=== PATIENT | male | born 1990 | race Caucasian/White ===

== ENCOUNTER 2016-11-12 14:28 | Emergency (ER) | payer OTHER, MEDICAID ==
[~2016-11-12] VITALS: Ht 190.5 cm; Wt 68.0 kg
[~2016-11-12 14:28] MED LIST: TRAM50 PO; ZOFR4TAB3 SL
[2016-11-12 14:37] VITALS: BP 116/74; PULSE 85; RESP 16; TEMP 98.3; O2SAT 99
[2016-11-12] MEDS ORDERED: SODIUM CHLOR 0.9% 1000 ML INJ 1,000 ML IV SCH (15:59)
[2016-11-12] MEDS ORDERED: MORPHINE SULFATE 4 MG/ML INJ IV PUSH ONE (16:00)
[2016-11-12] MEDS ORDERED: ONDANSETRON HCL 4 MG/2 ML VIAL IVP ONE (16:00)
[2016-11-12] MEDS ORDERED: SODIUM CHLORIDE 0.9% FLUSH 5 ML FLUSH IVF PRN (16:00)
--- NOTE | 2016-11-12 16:03 | PD ---
HPI Chief Complaint: Abdominal Pain Time Seen by Provider: 15:56 Travel History International Travel<30 days: No Contact w/Intl Traveler<30days: No Traveled to known affect area: No History of Present Illness HPI 26-year-old male here for evaluation of abdominal pain, nausea, vomiting, and diarrhea. The patient reports having these episodes intermittently for the past 2 weeks. He has not vomited in 2 days, however has had several episodes of loose bowel movements. Abdominal pain is diffuse. Patient states he feels as though he is . Abdominal pain also described as cramping/bloating, moderate, worse with movement and palpation. Emesis and bowel movements are nonbloody. No history of abdominal surgeries. He states that 2 out of 3 of his children at home have had vomiting and diarrhea over the past couple of weeks. He has had subjective fevers and chills. [facility] Past Medical History Medical History: Denies Significant Hx Influenza Vaccination: No Past Surgical History Surgical History: No Previous Surgery Social History Alcohol Use: Yes (SOCIAL) Tobacco Use: Yes Substance Use: Yes ([employer]) Allergies-Medications (Allergen,Severity, Reaction): Coded Allergies: No Known Allergies (Verified , 11/12/16) Reported Meds & Prescriptions Reported Meds & Active Scripts Active No Active Prescriptions or Reported Medications Review of Systems Except as stated in HPI: all other systems reviewed are Neg Physical Exam Narrative GENERAL: Well-developed, well-nourished, comfortable, no acute distress. SKIN: Warm and dry. HEAD: Atraumatic. Normocephalic. EYES: Pupils equal and round. No scleral icterus. No injection or drainage. ENT: Mucous membranes pink and dry. NECK: Trachea midline. No JVD. CARDIOVASCULAR: Regular rate and rhythm. RESPIRATORY: No accessory muscle use. Clear to auscultation. Breath sounds equal bilaterally. GASTROINTESTINAL: Abdomen soft, nondistended. Moderate periumbilical tenderness with mild diffuse abdominal tenderness without rebound or guarding. Normal bowel sounds. MUSCULOSKELETAL: No obvious deformities. No clubbing. No cyanosis. No edema. NEUROLOGICAL: Awake and alert. No obvious cranial nerve deficits. Motor grossly within normal limits. Normal speech. PSYCHIATRIC: Appropriate mood and affect; insight and judgment normal. Data Data Last Documented VS Vital Signs Date Time Temp Pulse Resp B/P Pulse Ox O2 Delivery O2 Flow Rate FiO2 11/12/16 16:21 98 Room Air 2/16/17 14:37 98.3 85 16 116/74 Orders Complete Blood Count With Diff (11/12/16 15:59) Comprehensive Metabolic Panel (11/12/16 15:59) Lipase (11/12/16 15:59) Prothrombin Time / Inr (Pt) (11/12/16 15:59) Act Partial Throm Time (Ptt) (11/12/16 15:59) Urinalysis - C+S If Indicated (11/12/16 15:59) Ct Abd/Pel W Iv Contrast(Rout) (11/12/16 15:59) Iv Access Insert/Monitor (11/12/16 15:59) Ecg Monitoring (11/12/16 15:59) Oximetry (11/12/16 15:59) Morphine Inj (Morphine Inj) (11/12/16 16:00) Ondansetron Inj (Zofran Inj) (11/12/16 16:00) Sodium Chlor 0.9% 1000 Ml Inj (Ns 1000 M (11/12/16 15:59) Sodium Chloride 0.9% Flush (Ns Flush) (11/12/16 16:00) Diatrizoate Liq ( Gastroview Liq) (11/12/16 16:12) Iohexol 350 Inj (Omnipaque 350 Inj) (11/12/16 17:52) Labs Laboratory Tests Test 11/12/16 16:12 White Blood Count 9.7 TH/MM3 Red Blood Count 4.70 MIL/MM3 Hemoglobin 15.3 GM/DL Hematocrit 45.2 % Mean Corpuscular Volume 96.2 FL Mean Corpuscular Hemoglobin 32.5 PG Mean Corpuscular Hemoglobin 33.8 % Concent Red Cell Distribution Width 12.7 % Platelet Count 227 TH/MM3 Mean Platelet Volume 8.2 FL Neutrophils (%) (Auto) 85.2 % Lymphocytes (%) (Auto) 6.0 % Monocytes (%) (Auto) 6.5 % Eosinophils (%) (Auto) 0.8 % Basophils (%) (Auto) 1.5 % Neutrophils # (Auto) 8.3 TH/MM3 Lymphocytes # (Auto) 0.6 TH/MM3 Monocytes # (Auto) 0.6 TH/MM3 Eosinophils # (Auto) 0.1 TH/MM3 Basophils # (Auto) 0.1 TH/MM3 CBC Comment DIFF FINAL Differential Comment Prothrombin Time 14.3 SEC Prothromb Time International 1.3 RATIO Ratio Activated Partial 32.2 SEC Thromboplast Time Urine Collection Type CLEAN CATCH Urine Color YELLOW Urine Turbidity CLEAR Urine pH 6.0 Urine Specific [place] 1.032 Urine Protein TRACE mg/dL Urine Glucose (UA) NEG mg/dL Urine Ketones NEG mg/dL Urine Occult Blood NEG Urine Nitrite NEG Urine Bilirubin NEG Urine Leukocyte Esterase NEG Urine RBC 0-3 /hpf Urine Squamous Epithelial 0-5 /hpf Cells Urine Mucus FEW /lpf Microscopic Urinalysis Comment CULT NOT INDICATED Urine Collection Time 16:12 Sodium Level 140 MEQ/L Potassium Level 3.9 MEQ/L Chloride Level 105 MEQ/L Carbon Dioxide Level 28.1 MEQ/L Anion Gap 7 MEQ/L Blood Urea Nitrogen 16 MG/DL Creatinine 0.96 MG/DL Estimat Glomerular Filtration 95 ML/MIN Rate Random Glucose 75 MG/DL Calcium Level 8.4 MG/DL Total Bilirubin 0.6 MG/DL Aspartate Amino Transf 25 U/L (AST/SGOT) Alanine Aminotransferase 22 U/L (ALT/SGPT) Alkaline Phosphatase 58 U/L Total Protein 7.0 GM/DL Albumin 4.0 GM/DL Lipase 74 U/L [facility] Medical Decision Making Medical Screen Exam Complete: Yes Emergency Medical Condition: Yes Differential Diagnosis Gastroenteritis, appendicitis, colitis, hepatobiliary disease, enteritis, pancreatitis, gastritis, UTI, cystitis, dehydration Narrative Course Vital signs show heart rate 85, blood pressure 116/74, pulse ox 99% on room air , oral temp of 98.3F. CBC is remarkable for 85% neutrophils, otherwise unremarkable. CMP is unremarkable. Lipase is 74. UA is not suggestive of UTI. CT abdomen pelvis: CONCLUSION: 1. Persistent pelvocaliectasis of the left collecting system with diffuse and significant dilation of the left ureter down to the UVJ. 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 2. Otherwise, no acute intraperitoneal or pelvic process to explain current clinical symptoms. The patient was given a liter of normal saline IV, antiemetics, and pain medication. Upon reassessment he is resting comfortably stating that he feels a lot better. He was made aware of all findings. Chart review shows that the patient had similar CT findings as above in February 2016. Urology was contacted by the emergency physician at that time, and he recommended outpatient follow- up. Patient was made aware of all findings and was provided a copy of his CT report. He states he has not followed up with a urologist yet. I believe he is suffering from a viral illness/gastroenteritis and believe he is stable for discharge home with outpatient follow-up. He was informed on when to return to the emergency department. He verbalizes understanding and agreement with plan. Diagnosis Primary Impression: Abdominal pain Qualified Code: R10.9 - Abdominal pain, unspecified location Additional Impressions: Diarrhea Qualified Code: R19.7 - Diarrhea, unspecified type Hydroureter Referrals: Eddie Spencer MD 1 week Urologist Primary Care Physician 3 days Additional Instructions: Follow-up with a primary care physician this week. Stay hydrated with plenty of fluids. Follow-up with urologist Dr. Spencer regarding your CT finding of an enlarged ureter. Return to the emergency department for worsening symptoms or any other concerns. Scripts Ondansetron Odt (Zofran Odt)4 Mg Tab4 Mg SL Q8HR PRN (Nausea/Vomiting) #15 TAB Ref 0 Prov:Philippe Reardon MD 11/12/16 Disposition: 01 DISCHARGE HOME Condition: Stable Philippe Reardon MD Nov 12, 2016 16:03
[2016-11-12] MEDS ORDERED: DIATRIZOATE MEGLUM/DIATRIZOATE SOD 9 ML CUP ONE (16:12)
[2016-11-12 16:21] VITALS: O2SAT 98
[2016-11-12 16:23] LABS: AUTOMATED NEUTROPHIL # 8.3 TH/MM3 (1.8-7.7); BASOPHIL # 0.1 TH/MM3 (0-0.2); BASOPHIL % 1.5 % (0.0-2.0); BLOOD, URINE NEG (NEG); EOSINOPHIL # 0.1 TH/MM3 (0-0.4); EOSINOPHIL % 0.8 % (0.0-4.0); GLUCOSE,URINE NEG (NEG); HEMATOCRIT 45.2 % (39.0-51.0); KETONE, URINE NEG (NEG); LYMPHOCYTE # 0.6 TH/MM3 (1.0-4.8); MEAN CELL VOLUME 96.2 FL (80.0-100.0); MEAN CORPUSCULAR HEMOGLOBIN 32.5 PG (27.0-34.0); MEAN CORPUSCULAR HGB CONC 33.8 % (32.0-36.0); MONO % 6.5 % (0.0-8.0); NEUT % 85.2 % (16.0-70.0); NITRITE,URINE NEG (NEG); PLATELET COUNT 227 TH/MM3 (150-450); RED CELL DISTRIBUTION WIDTH 12.7 % (11.6-17.2); WHITE BLOOD COUNT 9.7 TH/MM3 (4.0-11.0)
[2016-11-12 16:29] LABS: HEMO FLAGS DIFF FINAL
[2016-11-12 16:31] LABS: CHLORIDE 105 MEQ/L (98-107); POTASSIUM 3.9 MEQ/L (3.5-5.1); SODIUM (NA) 140 MEQ/L (136-145)
[2016-11-12 16:32] LABS: METHOD OF COLLECTION CLEAN CATCH; URINE COLOR YELLOW (YELLW/STRAW)
[2016-11-12 16:33] LABS: COMMENT (UR) CULT NOT INDICATED; CULTURE IF INDICATED CULT NOT INDICATED; MUCUS URINE FEW /lpf (OCC); RBC, URINE 0-3 /hpf (0-3); SQUAMOUS EPITHELIAL CELL URINE 0-5 /hpf (0-5)
[2016-11-12 16:35] LABS: ANION GAP 7 MEQ/L (5-15); BICARBONATE 28.1 MEQ/L (21.0-32.0)
[2016-11-12 16:36] LABS: APTT (PATIENT) 32.2 SEC (24.3-30.1); BLOOD UREA NITROGEN 16 MG/DL (7-18); INTERNATIONAL NORMALIZED RATIO 1.3 RATIO; PROTHROMBIN TIME - PATIENT 14.3 SEC (9.8-11.6)
[2016-11-12 16:38] LABS: ALT (GPT) 22 U/L (12-78); AST (GOT) 25 U/L (15-37); GLOMERULAR FILTRATION RATE 95 ML/MIN (>89)
[2016-11-12 16:40] LABS: TOTAL BILIRUBIN ADULT 0.6 MG/DL (0.2-1.0)
[2016-11-12 16:41] LABS: ALKALINE PHOSPHATASE 58 U/L (45-117)
[2016-11-12] MEDS ORDERED: IOHEXOL 350 MG/ML 10 ML VIAL (for RAD DIAG) IV ONE (17:52)
--- NOTE | 2016-11-12 18:02 | RADHPO ---
EXAM DATE/TIME: 11/12/2016 17:34 [facility] COMPARISON: CT ABDOMEN & PELVIS W CONTRAST, February 28, 2016, 10:54. INDICATIONS : Abdominal pain. Nausea. Vomiting. Diarrhea. IV CONTRAST: 75 cc Omnipaque 350 (iohexol) IV ORAL CONTRAST: Prescribed oral contrast ingested. RADIATION DOSE: 5.66 CTDIvol (mGy) MEDICAL HISTORY : None SURGICAL HISTORY : None. ENCOUNTER: Initial ACUITY: 2 weeks PAIN SCALE: 8/10 LOCATION: Bilateral Abdomen and pelvis. TECHNIQUE: Volumetric scanning of the abdomen and pelvis was performed. Using automated exposure control and ad justment of the mA and/or kV according to patient size, radiation dose was kept as low as reasonably achievable to obtain optimal diagnostic quality images. FINDINGS: LOWER LUNGS: The visualized lower lungs are clear. LIVER: Homogeneous density without lesion. There is no dilation of the biliary tree. No calcified gallston es. SPLEEN: Normal size without lesion. PANCREAS: Within normal limits. KIDNEYS: Normal in size and shape. Mild pelvocaliectasis of the left renal collecting system with a persistent , markedly enlarged left ureter down to the UVJ possibly representing primary megaureter. ADRENAL GLANDS: Within normal limits. VASCULAR: There is no aortic aneurysm. BOWEL/MESENTERY: The stomach, small bowel, and colon demonstrate no acute abnormality. There is no free intraperitone al air or fluid. ABDOMINAL WALL: Within normal limits. RETROPERITONEUM: There is no lymphadenopathy. BLADDER: No wall thickening or mass. REPRODUCTIVE: Within normal limits. INGUINAL: There is no lymphadenopathy or hernia. MUSCULOSKELETAL: Within normal limits for patient age. CONCLUSION: 1. Persistent pelvocaliectasis of the left collecting system with diffuse and significant dilation of the left ureter down to the UVJ. 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 2. Otherwise, no acute intraperitoneal or pelvic process to explain current clinical symptoms. Gopal Barragan MD on November 12, 2016 at 17:56 Board Certified Radiologist. This report was verified electronically.
[2016-11-12] MEDS ORDERED: ZOFR4TAB3 SL (18:16)
[2016-11-12 18:30] VITALS: BP 123/74; PULSE 68; RESP 18; O2SAT 98
== END 2016-11-12 18:32 | disposition home or self-care (01) ==
LOC: PHED 14:28
DX: K52.9 Noninfective gastroenteritis and colitis, unspecified (principal); B34.9 Viral infection, unspecified; Z72.0 Tobacco use; F12.10 Cannabis abuse, uncomplicated
CPT/HCPCS: 74177; 80053; 81001; 83690; 85025; 85610; 85730; 96361; 96374; 96375; 99284; J2270; J2405; J7030; Q9963; Q9967